=== PATIENT | male | born 1990 | race Caucasian/White ===

== ENCOUNTER 2021-04-11 16:05 | Emergency (ER) | payer SELFPAY ==
[~2021-04-11] VITALS: Ht 172.7 cm; Wt 75.0 kg
[2021-04-11 16:29] VITALS: BP 104/55
== END 2021-04-11 17:20 | disposition left against medical advice (07) ==
LOC: ER 16:05
DX: S09.8XXA Other specified injuries of head, initial encounter (principal); Y04.0XXA Assault by unarmed brawl or fight, initial encounter; F10.129 Alcohol abuse with intoxication, unspecified; Y90.9 Presence of alcohol in blood, level not specified; R00.0 Tachycardia, unspecified; Y93.89 Activity, other specified; Y92.89 Other specified places as the place of occurrence of the external cause
CPT/HCPCS: 99281

== ENCOUNTER 2022-10-09 20:25 | Emergency (ER) | payer SELFPAY ==
[~2022-10-09] VITALS: Ht 167.6 cm; Wt 80.0 kg
[2022-10-09] MEDS ORDERED: ONDANSETRON HCL 4MG/2ML INJ IV STA (20:57)
[2022-10-09] MEDS ORDERED: SODIUM CHLORIDE 0.9% 1,000 ML IV ONE (21:00)
[2022-10-09] MEDS ORDERED: PANTOPRAZOLE SODIUM 40 MG/VIAL IV ONE (21:30)
[2022-10-09] MEDS ORDERED: DEXT 5%/LACTATED RINGERS 1,000 ML IV ONE (21:30)
[2022-10-09 21:45] LABS: BASOPHILS % 0.5 % (0.0-2.0); HEMATOCRIT. 42.2 % (42.0-52.0); HEMOGLOBIN. 14.8 g/dL (14.0-18.0); LYMPHOCYTES % 10.6 % (20.0-50.0); MEAN CORPUSCULAR HEMOGLOBIN 32.1 pg (28.0-32.0); MEAN CORPUSCULAR VOLUME 91.5 fL (80.0-94.0); MEAN PLATELET VOLUME 8.9 fl (7.4-10.4); MONOCYTES % 9.1 % (2.0-8.0); NEUTROPHILS % 79.8 % (40.0-76.0); PLATELET 87 x1000/uL (130-400); RED BLOOD CELL COUNT 4.62 mill/uL (4.7-6.1); RED CELL DISTRIBUTION WIDTH 13.1 % (11.6-14.6)
[2022-10-09 22:15] LABS: CHLORIDE 86 mEq/L (98-107)
[2022-10-09] MEDS ORDERED: ONDANSETRON HCL 4MG/2ML INJ ONE (22:45)
[2022-10-09 22:48] LABS: ETHANOL BLOOD 451 mg/dL (-10)
[2022-10-09 22:51] VITALS: BP 157/72; PULSE 121; RESP 18; TEMP 98.2
[2022-10-09] MEDS ORDERED: MORPHINE SULFATE 4 MG/ML CPJ (NOT FOR IM USE) IV NR (23:30)
[2022-10-10] MEDS ORDERED: IOHEXOL-300 100 ML BOTTLE ONE (00:19)
[2022-10-10] MEDS ORDERED: CLONIDINE 0.1MG TABLET PO PRN (02:15)
[2022-10-10] MEDS ORDERED: LORAZEPAM 0.5MG TABLET PO PRN (02:15)
[2022-10-10] MEDS ORDERED: IPRATROPIUM/ALBUTEROL 0.5-3(2.5)MG/3ML NEB HHN PRN (02:15)
[2022-10-10] MEDS ORDERED: MORPHINE SULFATE 2 MG/ML CPJ (NOT FOR IM USE) IV PRN (02:15)
[2022-10-10] MEDS ORDERED: ACETAMINOPHEN 325MG TABLET PO PRN ×2 (02:15)
[2022-10-10] MEDS ORDERED: LORAZEPAM 2MG/ML CPJ IV ONE (02:15)
[2022-10-10] MEDS ORDERED: ONDANSETRON HCL 4MG/2ML INJ IV PRN (02:15)
[2022-10-10] MEDS ORDERED: DOCUSATE SODIUM 100MG CAPSULE PO PRN (02:15)
[2022-10-10] MEDS ORDERED: SODIUM CHLORIDE 0.9% 1,000 ML IV SCH (02:15)
[2022-10-10] MEDS ORDERED: FOLIC ACID 1MG TABLET PO SCH (09:00)
[2022-10-10] MEDS ORDERED: THIAMINE HCL 100MG TABLET PO SCH (09:00)
[2022-10-10] MEDS ORDERED: MULTIVITAMINS,THER W-MINERALS TABLET PO SCH (09:00)
== END 2022-10-10 02:20 | disposition left against medical advice (07) ==
LOC: ER 20:25 → CANBEDREQ 10-10 23:30
DX: K85.90 Acute pancreatitis without necrosis or infection, unspecified (principal); E87.1 Hypo-osmolality and hyponatremia; N19 Unspecified kidney failure
CPT/HCPCS: 80053; 80320; 83605; 83690; 85025; 86850; 86900; 86901; 36415; 74177; 93005; 96361; 96374; 96375; 99285; J2405; J7121; J7030; Q9967; G0480

== ENCOUNTER 2022-10-12 18:28 | Emergency (ER) | payer SELFPAY ==
[~2022-10-12] VITALS: Ht 172.7 cm; Wt 86.0 kg
[2022-10-12 18:35] VITALS: BP 145/94; PULSE 130; RESP 20; TEMP 98.4; O2SAT 100
[2022-10-12 19:31] LABS: BASOPHILS % 0.5 % (0.0-2.0); EOSINOPHILS % 0.8 % (0.0-5.0); HEMATOCRIT. 38.7 % (42.0-52.0); HEMOGLOBIN. 13.8 g/dL (14.0-18.0); LYMPHOCYTES % 14.5 % (20.0-50.0); MEAN CORPUSCULAR HEMOGLOBIN 32.4 pg (28.0-32.0); MEAN CORPUSCULAR VOLUME 90.6 fL (80.0-94.0); MEAN PLATELET VOLUME 9.5 fl (7.4-10.4); MONOCYTES % 8.7 % (2.0-8.0); NEUTROPHILS % 75.5 % (40.0-76.0); PLATELET 55 x1000/uL (130-400); RED BLOOD CELL COUNT 4.28 mill/uL (4.7-6.1)
[2022-10-12 19:37] LABS: CHLORIDE 93 mEq/L (98-107)
== END 2022-10-12 21:21 | disposition left against medical advice (07) ==
LOC: ER 18:28
DX: Z53.21 Procedure and treatment not carried out due to patient leaving prior to being seen by health care provider (principal)
CPT/HCPCS: 36415; 71101; 80053; 85025; 99281